=== PATIENT | female | born 1945 | race Caucasian/White ===

== ENCOUNTER → 2024-08-14 10:56 | Outpatient (REF) | payer MEDICARE, SELFPAY | LOC: WDC 10:56 | PROVIDERS: ATTENDING PHYSICIAN Physician Assistant Medical | DX: E78.2 Mixed hyperlipidemia (principal); Z00.00 Encounter for general adult medical examination without abnormal findings; Z12.31 Encounter for screening mammogram for malignant neoplasm of breast | CPT/HCPCS: 77063; 77067 ==